=== PATIENT | female | born 2000 | race Caucasian/White ===

== ENCOUNTER 2024-07-04 09:27 | Emergency (ER) | payer MEDICAID ==
[~2024-07-04] VITALS: Ht 157.5 cm; Wt 55.0 kg
[2024-07-04 09:30] VITALS: O2SAT 99
[2024-07-04 10:37] LABS: CHLORIDE 108 mEq/L (98-107); POTASSIUM 4.3 mEq/L (3.5-5.1); SODIUM 139 mEq/L (136-145)
[2024-07-04 10:38] LABS: CALCIUM 9.4 mg/dL (8.7-10.4); CARBON DIOXIDE 22 mEq/L (21-32)
[2024-07-04 10:41] LABS: BASOPHILS % 0.7 % (0.0-2.0); HEMATOCRIT. 39.1 % (36.0-48.0); HEMOGLOBIN. 12.6 g/dL (12.0-16.0); LYMPHOCYTES % 37.7 % (20.0-50.0); MEAN CORPUSCULAR HEMOGLOBIN 28.2 pg (28.0-32.0); MEAN CORPUSCULAR HGB CONC 32.2 g/dL (31.0-37.0); MEAN CORPUSCULAR VOLUME 87.6 fL (81.0-99.0); MEAN PLATELET VOLUME 10.4 fl (7.4-10.4); MONOCYTES % 5.6 % (2.0-8.0); PLATELET 180 x1000/uL (130-400); RED BLOOD CELL COUNT 4.47 mill/uL (4.2-5.4); RED CELL DISTRIBUTION WIDTH 17.6 % (11.6-14.6); WHITE BLOOD COUNT 8.5 x1000/uL (4.5-11.0)
[2024-07-04 10:43] LABS: CREATININE 0.4 mg/dL (0.6-1.0); GLUCOSE 103 mg/dL (70-105); UREA NITROGEN BLOOD 6 mg/dL (9-23)
[2024-07-04 10:46] LABS: TROPONIN I HIGH SENSITIVITY 4 ng/L (3.0-34)
[2024-07-04 11:05] LABS: ETHANOL BLOOD < 10 mg/dL (<10)
[2024-07-04 12:19] LABS: CLARITY URINE CLEAR (CLEAR); COLOR URINE YELLOW (YELLOW); GLUCOSE URINE NEGATIVE (NEGATIVE); KETONES URINE NEGATIVE (NEGATIVE); LEUKOCYTE ESTERASE URINE TRACE (NEGATIVE); NITRITE URINE NEGATIVE (NEGATIVE); OCCULT BLOOD URINE 2+ (NEGATIVE); PROTEIN URINE 1+ (NEGATIVE); SPECIFIC GRAVITY URINE 1.013 (1.005-1.030); UROBILINOGEN URINE 0.2 E.U./dL (0.2-1.0)
[2024-07-04 12:41] LABS: *AMPHETAMINES SCREEN URINE NEGATIVE (NEGATIVE)
[2024-07-04 12:42] LABS: *BARBITURATES SCREEN URINE NEGATIVE (NEGATIVE); *BENZODIAZEPINES SCREEN URINE NEGATIVE (NEGATIVE); *COCAINE SCREEN URINE NEGATIVE (NEGATIVE); CANNABINOID URINE SCREEN NEGATIVE (NEGATIVE); ECSTASY MDMA SCREEN URINE NEGATIVE (NEGATIVE); METHADONE URINE SCREEN NEGATIVE (NEGATIVE); OPIATES URINE SCREEN NEGATIVE (NEGATIVE); PHENCYCLIDINE URINE SCREEN NEGATIVE (NEGATIVE)
[2024-07-04 13:21] LABS: MUCUS URINE TRACE /lpf (< = 2+)
[2024-07-04 13:22] LABS: BACTERIA URINE TRACE; RBC URINE 15-25 /hpf (0-2); SQUAMOUS EPITHELIAL CELL URINE NONE SEEN /lpf (RARE/1+)
[2024-07-04] MEDS ORDERED: NITR-87 MT (13:27)
[2024-07-04 13:45] VITALS: BP 112/80; PULSE 89; RESP 20; TEMP 36.72516; O2SAT 99
== END 2024-07-04 14:52 | disposition home or self-care (01) ==
LOC: ER 09:27
DX: R56.9 Unspecified convulsions (principal); N39.0 Urinary tract infection, site not specified
CPT/HCPCS: 36415; 71045; 80048; 80305; 80320; 81003; 84484; 85025; 93005; 99285; G0480